=== PATIENT | male | born 1955 | race Caucasian/White ===

== ENCOUNTER → 2018-05-14 | Outpatient (CLI) | payer BC ==
[~2018-05-14] MED LIST: CICLOPIROX OLAM0.771 TP; PRIL40 PO
== END ==
LOC: COL.RAD 08:03
DX: K57.32 Diverticulitis of large intestine without perforation or abscess without bleeding (principal)
CPT/HCPCS: Q9967

== ENCOUNTER 2018-10-24 19:18 | Inpatient (IN) | payer BC ==
[~2018-10-24] VITALS: Ht 170.2 cm; Wt 85.4 kg
[2018-10-24] MEDS ORDERED: GAVISCON ESRF360 ML (19:45)
[2018-10-24 20:32] LABS: BASO # 0.1 (0.0-0.2); BASO % 0.4 % (0.0-2.0); EOS # 0.4 (0.0-0.7); EOS % 3.1 % (0-4.0); GRAN # 8.6 (1.4-6.5); GRAN % 65.6 % (42.2-75.2); HEMATOCRIT 42.3 % (42.0-52.0); HEMOGLOBIN 14.9 g/dl (13.5-18.0); LYMPH % 22.8 % (20.0-51.0); MEAN CELL VOLUME 88 fl (80.0-100.0); MEAN CORPUSCULAR HEMOGLOBIN 31 pg (27.0-31.0); MEAN CORPUSCULAR HGB CONC 35 g/dl (33.0-37.0); MEAN PLATELET VOLUME 10.1 fl (7.4-10.4); MONO % 7.7 % (1.7-9.3); PLATELET COUNT 249 K/mm3 (130-400); RED BLOOD COUNT 4.79 M/mm3 (4.20-5.60); REDCELL DISTRIBUTION WIDTH-CV 13.6 % (11.5-14.5)
[2018-10-24 20:35] LABS: ALBUMIN 4.1 gm/dL (3.5-5.0); BILIRUBIN,TOTAL 0.6 mg/dL (0.0-1.0); C-REACTIVE PROTEIN 3.4 mg/dL (0.0-0.9); CALCIUM 9.8 mg/dL (8.4-10.2); CREATININE, serum 0.86 mg/dL (0.66-1.25); POTASSIUM 3.5 mmol/L (3.4-5.0); TOTAL PROTEIN 7.5 gm/dL (6.4-8.2)
[2018-10-24 22:23] LABS: COLLECTION METHOD CLEAN CATCH
[2018-10-24 22:29] LABS: PH 7 (5-8); SQUAMOUS EPITHELIAL None Seen /hpf; URINE APPEARANCE Clear; URINE BACTERIA None Seen /hpf; URINE BILIRUBIN Negative (NEGATIVE); URINE BLOOD Negative (NEGATIVE); URINE COLOR Straw; URINE GLUCOSE Negative (NEGATIVE); URINE KETONE Trace (NEGATIVE); URINE LEUKOCYTE ESTERASE Negative (NEGATIVE); URINE NITRATE Negative (NEGATIVE); URINE PROTEIN(semi-quant) Negative (NEGATIVE); URINE RBC 0-2 /hpf; URINE UROBILINOGEN Negative (NEGATIVE)
[2018-10-24 23:12] VITALS: BP 154/90; PULSE 79; TEMP 97.5
[2018-10-24 23:13] VITALS: BP 154/90; PULSE 79; TEMP 97.5
[2018-10-25 00:19] LABS: CHOLESTEROL RISK RATIO 5.2
[2018-10-25 00:40] VITALS: BP 126/69; PULSE 71; TEMP 98
[2018-10-25 04:17] VITALS: BP 118/63; PULSE 67; TEMP 87
[2018-10-25 06:40] LABS: BASO % 0.3 % (0.0-2.0); EOS # 0.2 (0.0-0.7); EOS % 1.9 % (0-4.0); GRAN # 7.5 (1.4-6.5); GRAN % 72.9 % (42.2-75.2); HEMATOCRIT 39.5 % (42.0-52.0); HEMOGLOBIN 13.5 g/dl (13.5-18.0); LYMPH # 1.7 (1.2-3.4); LYMPH % 16.1 % (20.0-51.0); MEAN CELL VOLUME 89 fl (80.0-100.0); MEAN CORPUSCULAR HEMOGLOBIN 30 pg (27.0-31.0); MEAN CORPUSCULAR HGB CONC 34 g/dl (33.0-37.0); MEAN PLATELET VOLUME 10.1 fl (7.4-10.4); MONO # 0.9 (0.1-0.6); MONO % 8.5 % (1.7-9.3); PLATELET COUNT 217 K/mm3 (130-400); RED BLOOD COUNT 4.44 M/mm3 (4.20-5.60); REDCELL DISTRIBUTION WIDTH-CV 13.6 % (11.5-14.5)
[2018-10-25 06:55] LABS: ALBUMIN 3.5 gm/dL (3.5-5.0); BILIRUBIN,TOTAL 0.9 mg/dL (0.0-1.0); CALCIUM 9.2 mg/dL (8.4-10.2); CREATININE, serum 0.79 mg/dL (0.66-1.25); POTASSIUM 4.1 mmol/L (3.4-5.0); TOTAL PROTEIN 6.6 gm/dL (6.4-8.2)
[2018-10-25 08:35] VITALS: BP 125/66; PULSE 70; TEMP 97.5
[2018-10-25 11:42] VITALS: BP 121/72; PULSE 59; TEMP 97.4
[2018-10-25 15:47] VITALS: BP 135/77; PULSE 67; TEMP 97.6
[2018-10-25 20:00] VITALS: BP 119/66; PULSE 61; TEMP 98.1
[2018-10-26 00:34] VITALS: BP 110/67; PULSE 64; TEMP 97.8
[2018-10-26 05:05] VITALS: BP 111/64; PULSE 62; TEMP 97.6
[2018-10-26 07:49] VITALS: BP 108/71; PULSE 60; TEMP 97.4
[2018-10-26 11:39] VITALS: BP 121/71; PULSE 50; TEMP 97.6
[2018-10-26] MEDS ORDERED: FLAGYL500 MG PO (12:12)
[2018-10-26] MEDS ORDERED: CLEOCIN HCL300 MG PO (12:20)
[2018-10-26] MEDS ORDERED: PROBIOTIC GOLD1 EACH PO (12:21)
== END 2018-10-26 13:10 | disposition home or self-care (01) | DRG 392 ==
LOC: COL.ER 19:18 → MEDICAL 22:33
PROVIDERS: Nurse Practitioner Family; Physician Assistant
DX: K57.32 Diverticulitis of large intestine without perforation or abscess without bleeding (principal); K21.9 Gastro-esophageal reflux disease without esophagitis
CPT/HCPCS: 99222-AI; 99232-AI; 99239; A4216; J1170; J1650; J2185; J2405; J7030; Q9967

== ENCOUNTER 2018-11-07 14:38 | Inpatient (IN) | payer BC ==
[~2018-11-07] VITALS: Ht 172.7 cm; Wt 81.0 kg
[~2018-11-07 14:38] MED LIST changes: +CLEOCIN HCL300 MG PO; +FLAGYL500 MG PO; +GAVISCON ESRF360 ML; +PROBIOTIC GOLD1 EACH PO
[2018-12-17] VITALS (8 sets, daily range): BP systolic 109–133; BP diastolic 56–86; PULSE 16–98; TEMP 98–98.1
[2018-12-17] MEDS ORDERED: PROBIOTIC FORMU1 CAP PO (11:06)
--- NOTE | 2018-12-17 17:30 | NUR ---
PATIENT ADMITED INTO ROOM 328 POST OP ROBOTIC SIG COLECTOMY. ABDOMINAL LAP SITES X5 ARE CD&I WITH SWIFTSET. ABDOMIN IS DISTENDED, SOFT AND WITH BOWL SOUNDS. NO C/O N/V. IV FLUIDS INFUSING INTO LEFT WRIST IV. MILLER TO DEPENDENT DRAINAGE WITH SMALL AMOUNTS OF CLEAR YELLOW URINE NOTED. HEAD TO TOE ASSESSMENT WNL. ORIENTED TO ROOM. FAMILY AT BEDSIDE. CALL LIGHT IN REACH.
--- NOTE | 2018-12-17 21:00 | NUR ---
Assessment completed. Patient is A&O x 4. VSS, on room air. Tramadol started for pain control. Abdominal lap sites x 5 with edges well approximated. Denies passing any gas. Tolerating clear liquid diet at this time with no c/o nausea. Donohue catheter to DD with greenish/yellow urine draining. BLE scds on. INT to left wrist. is at bedside. Denies any concerns or needs. Bed is in a low position with call light in reach.
--- NOTE | 2018-12-17 21:50 | NUR ---
Ambulated with patient in the hallway with standby assist, gait steady. Reported increase pain with ambulating and movement, prn 1 tablet of Oxycodone given. Denies any concerns or needs, call light within reach.
--- NOTE | 2018-12-18 00:44 | NUR ---
Patient resting in bed reports abdominal pain, scheduled Tylenol ES given. Continues to tolerate diet with no c/o nausea. Denies any concerns or needs at this time, call light remains within reach.
--- NOTE | 2018-12-18 04:29 | NUR ---
Patient c/o of abdomen hurting more and feeling "a little nauseous" rate pain 7/10 prn Oxycodone given and IV Zofran. Reports he wishes he could just belch but is unable to also continues to deny passing any gas. Patient encouraged to ambulate in the hallway again this morning when he doesn't feel nauseous, stated he felt this was a good idea in a little while. Denies any additional concerns or needs, call light within reach.
[2018-12-18 04:52] VITALS: BP 101/60; PULSE 77; TEMP 98.1
--- NOTE | 2018-12-18 05:45 | NUR ---
Patient has rested for short periods of time through the night. VSS, remains on room air. Abdominal lap sites x 5 with edges well approximated. Denies passing gas states he feels like it's close to happening. Reports continued abdominal pain and now right shoulder pain, educated about gas pain. Abdomen is bloated on the right side. Donohue catheter to DD with yellow clear urine draining. Patient was up at this time ambulating the hallway with standby assist, gait remains stead. remains at bedside. Denies any concerns or needs, call light within reach.
[2018-12-18 07:06] LABS: HEMATOCRIT 40.5 % (42.0-52.0); HEMOGLOBIN 13.9 g/dl (13.5-18.0); MEAN CELL VOLUME 89 fl (80.0-100.0); MEAN CORPUSCULAR HEMOGLOBIN 30 pg (27.0-31.0); MEAN CORPUSCULAR HGB CONC 34 g/dl (33.0-37.0); MEAN PLATELET VOLUME 10.6 fl (7.4-10.4); PLATELET COUNT 219 K/mm3 (130-400); RED BLOOD COUNT 4.57 M/mm3 (4.20-5.60); REDCELL DISTRIBUTION WIDTH-CV 13.2 % (11.5-14.5)
--- NOTE | 2018-12-18 07:07 | NUR ---
Report from Marian ELDRIDGE.
[2018-12-18 07:15] LABS: CALCIUM 9.9 mg/dL (8.4-10.2); CREATININE, serum 0.81 mg/dL (0.66-1.25); MAGNESIUM 1.6 mg/dL (1.6-2.3); PHOSPHOROUS 3.7 mg/dL (2.5-4.5); POTASSIUM 4.1 mmol/L (3.4-5.0)
[2018-12-18 07:34] VITALS: BP 100/53; PULSE 72; TEMP 97.6
--- NOTE | 2018-12-18 07:38 | NUR ---
CRITICAL LAB CALLED TO DR. PAZ HE WILL REVIEW AND PLACE ORDERS.
[2018-12-18 07:46] LABS: BAND 7 % (0-10); LYMPHOCYTE 6 % (20.0-51.0); NEUTROPHILS 85 % (42.0-75.2); PLATELET ESTIMATE NORMAL (NORMAL)
--- NOTE | 2018-12-18 09:28 | NUR ---
Initial visit; Patient thanked Sales Effectiveness Manager for looking in on him and offering God's blessings.
--- NOTE | 2018-12-18 10:28 | NUR ---
PT UP INDEPENDENTLY IN ROOM AND HALLS. MILLER CATHETER TO DD WITH CLEAR YELLOW URINE IN BAG. PAIN CONTROLLED WITH PO MEDS.
[2018-12-18 11:42] VITALS: BP 117/68; PULSE 70; TEMP 98
--- NOTE | 2018-12-18 16:10 | NUR ---
ANGELITA and SW student met with the patient to discuss discharge plan. The patient lives alone in [place]. He reports that he does have family in town. The patient does not use any DME and reports independence with ADLs. The patient's PCP is Dr. Belcher and he receives his medications at the [facility] in [place]. The patient reports no difficulties obtaining his medications. The patient does have a DPOA-HC completed and there is a copy in his chart. The patient plans to return home upon discharge. No additional needs at this time.
[2018-12-18 16:33] VITALS: BP 125/59; PULSE 64; TEMP 98.1
--- NOTE | 2018-12-18 18:48 | NUR ---
report to Marian ELDRIDGE.
[2018-12-18 19:54] VITALS: BP 107/64; PULSE 75; TEMP 98.2
--- NOTE | 2018-12-18 21:15 | NUR ---
Assessment completed. Patient is A&O x 4. VSS, on room air. Reports minimal pain to abdomen at this time with movement. Abdominal lap sites x 4 with a small lower transverse incision all with edges well approximated, no drainage noted. Hypoactive bowel sounds. Denies passing any gas. Tolerating diet with no c/o nausea. Voiding with no difficulities. BLE scds on while in bed. Up ambulating in room and hallway independently. Requested Benadryl with HS medications. Denies any concerns or needs, call light is within reach.
[2018-12-19] VITALS (7 sets, daily range): BP systolic 95–129; BP diastolic 53–78; PULSE 70–90; TEMP 97.4–98.6
--- NOTE | 2018-12-19 00:45 | NUR ---
Patient has been resting well after receiving prn Benadryl. Reports minimal pain at this time and refused scheduled Tylenol ES. Denies any concerns or needs.
[2018-12-19 06:05] LABS: HEMATOCRIT 39.6 % (42.0-52.0); HEMOGLOBIN 13.3 g/dl (13.5-18.0); MEAN CELL VOLUME 91 fl (80.0-100.0); MEAN CORPUSCULAR HEMOGLOBIN 30 pg (27.0-31.0); MEAN CORPUSCULAR HGB CONC 34 g/dl (33.0-37.0); MEAN PLATELET VOLUME 10.5 fl (7.4-10.4); PLATELET COUNT 204 K/mm3 (130-400); RED BLOOD COUNT 4.37 M/mm3 (4.20-5.60); REDCELL DISTRIBUTION WIDTH-CV 13.6 % (11.5-14.5)
--- NOTE | 2018-12-19 06:16 | NUR ---
Patient has rested well through the night after receiving Benadryl last night. Abdominal pain controlled with scheduled Tylenol ES. Continues to deny passing any gas. Denies any nausea. Up ambulating the hallway this morning independently. Denies any concerns or needs.
[2018-12-19 06:29] LABS: ALBUMIN 3.6 gm/dL (3.5-5.0); BILIRUBIN,TOTAL 0.9 mg/dL (0.0-1.0); CALCIUM 9.7 mg/dL (8.4-10.2); CREATININE, serum 0.91 mg/dL (0.66-1.25); POTASSIUM 3.9 mmol/L (3.4-5.0); TOTAL PROTEIN 6.7 gm/dL (6.4-8.2)
[2018-12-19 06:34] LABS: EOSINOPHIL 2 % (0-4); LYMPHOCYTE 12 % (20.0-51.0); METAMYELOCYTE 1 % (0-0); NEUTROPHILS 84 % (42.0-75.2); PLATELET ESTIMATE NORMAL (NORMAL)
--- NOTE | 2018-12-19 06:35 | NUR ---
Reported on to CHENTE Sandoval. Assessment completed. Pateint is A&O x4. VSS. INT to L. wrist CDI and patent. Patient has minimal pain to abdomen. Abdominal lap sites x5 are CDI with well approximated edges. Denies passing gas. Tolerating diet well w/ no c/o nausea or vomiting. Ambulating around room and hallways independently. Patient just took a shower and got his linens changed. Pateint denies any needs or concerns at this time. Call light is within reach.
[2018-12-19 06:36] LABS: HYPOCHROMIA 1+
--- NOTE | 2018-12-19 07:04 | NUR ---
REPORT FROM RYLEE ELDRIDGE.
--- NOTE | 2018-12-19 07:06 | NUR ---
ADN STUDENT JACKY WORKING WITH PT THIS SHIFT.
--- NOTE | 2018-12-19 13:18 | NUR ---
Patient is laying in bed watching television. SCDs on and in place. Patient had a small bowel movement earlier today. Patient recieved a PRN Oxycodone 5mg from c/o pain. Patient has no complaints or concerns at this time. Will continue to monitor. Reported off to CHENTE Sandoval.
--- NOTE | 2018-12-19 13:19 | NUR ---
agree with student's assessments this shift. patient had sm bowel movement today. Encouraged pt to continue advancing diet. pt denies needs at this time.
--- NOTE | 2018-12-19 20:30 | NUR ---
Pt. sitting up in bed at this time. Pt. is A&OX3, assessment complete. INT to lt. wrist patent. Pt. reports pain at a 1 on pain scale at this time. Abd. lap sites and abd. transverse incisions CDI with well approximated edges. Pt. denies further needs at this time. Call light within reach.
[2018-12-20 04:52] VITALS: BP 109/72; PULSE 76; TEMP 97.5
[2018-12-20 06:07] LABS: BASO % 0.3 % (0.0-2.0); EOS # 0.4 (0.0-0.7); EOS % 5.8 % (0-4.0); GRAN # 4.7 (1.4-6.5); GRAN % 63.6 % (42.2-75.2); HEMATOCRIT 38.1 % (42.0-52.0); HEMOGLOBIN 12.9 g/dl (13.5-18.0); LYMPH # 1.4 (1.2-3.4); LYMPH % 18.5 % (20.0-51.0); MEAN CELL VOLUME 91 fl (80.0-100.0); MEAN CORPUSCULAR HEMOGLOBIN 31 pg (27.0-31.0); MEAN CORPUSCULAR HGB CONC 34 g/dl (33.0-37.0); MEAN PLATELET VOLUME 10.3 fl (7.4-10.4); MONO # 0.8 (0.1-0.6); MONO % 11.3 % (1.7-9.3); PLATELET COUNT 208 K/mm3 (130-400); REDCELL DISTRIBUTION WIDTH-CV 13.8 % (11.5-14.5)
--- NOTE | 2018-12-20 06:07 | NUR ---
Pt. sitting up in chair at this time. Pt. remains A&OX3. Pt. ambulated the halls this am. Pt. reports mild pain, gave scheduled Tylenol per orders. Pt. denies further needs, call light within reach.
[2018-12-20 06:17] LABS: CALCIUM 9.7 mg/dL (8.4-10.2); CREATININE, serum 0.91 mg/dL (0.66-1.25); POTASSIUM 3.7 mmol/L (3.4-5.0)
--- NOTE | 2018-12-20 06:25 | NUR ---
Reported on to Cristiana ELDRIDGE. Assessment completed. A&O X4, VSS. INT CDI with no redness noted. Abdominal lap sites X5 are CDI and well approximated. Patient denies being able to pass gas. Patient ambulating independently throughout the halls and his room. Patient showered. Bowel sounds are hypoactive in all 4 quadrants. Patient has no c/o pain at this time. Call light is within reach. Will continue to monitor.
[2018-12-20 07:05] VITALS: BP 121/61; PULSE 77; TEMP 97.8
--- NOTE | 2018-12-20 11:38 | NUR ---
Follow-up visit; Patient thanked Card Reader for looking in on him again and for wishing him well. Patient states he is doing a little better.
[2018-12-20 12:00] VITALS: BP 114/91; PULSE 93; TEMP 97.2
[2018-12-20] MEDS ORDERED: ULTRAM 50MG TAB50 MG PO (14:36)
[2018-12-20] MEDS ORDERED: ROXICODONE 55 MG/TAB PO (14:36)
[2018-12-20] MEDS ORDERED: COLACE 100100 MG/CAP PO (14:37)
[2018-12-20] MEDS ORDERED: NEURONTIN100 MG/CAP PO (14:37)
[2018-12-20] MEDS ORDERED: TYLENOL 500MG500 MG PO (14:37)
[2018-12-20 15:48] VITALS: BP 115/67; PULSE 79; TEMP 97.5
--- NOTE | 2018-12-20 20:45 | NUR ---
Pt. sitting up in bed at this time. Pt. is A&OX3, assessment complete. INT to lt. wrist. abd. incsions- edges well approximated. Pt. denies further needs at this time. Call light within reach.
[2018-12-20 20:46] VITALS: BP 133/71; PULSE 85; TEMP 97.9
[2018-12-21 04:00] VITALS: BP 125/83; PULSE 70; TEMP 98
--- NOTE | 2018-12-21 06:36 | NUR ---
Pt. sitting up in chair this am. Pt. is A&OX3. INT to lt. wrist patent. Pt. has been up ambulating the halls this am also. Pt. has had a BM this am. Pt. denies pain or other needs, call light within reach.
[2018-12-21 08:45] VITALS: BP 124/73; PULSE 83; TEMP 97.7
--- NOTE | 2018-12-21 12:10 | NUR ---
Ambulatory independently. Denied pain. Mild nausea and indigestion. Dr. [place] saw patient. Prescriptions and home instructions given. Dismissed to home with family.
== END 2018-12-21 12:10 | disposition home or self-care (01) | DRG 331 ==
LOC: INPTSU 12-17 10:22 → JCC 12-17 10:22 → SURG 12-17 12:30 → JCC 12-17 17:40
PROVIDERS: Urology; ADMIT Surgery
PROC: 0DJD8ZZ Inspection of Lower Intestinal Tract, Via Natural or Artificial Opening Endoscopic (ICD-10-PCS; 2018-12-17)
PROC: 3E0K8KZ Introduction of Other Diagnostic Substance into Genitourinary Tract, Via Natural or Artificial Opening Endoscopic (ICD-10-PCS; 2018-12-17)
PROC: 0DTN4ZZ Resection of Sigmoid Colon, Percutaneous Endoscopic Approach (ICD-10-PCS; principal; 2018-12-17 12:30)
PROC: 8E0W8CZ Robotic Assisted Procedure of Trunk Region, Via Natural or Artificial Opening Endoscopic (ICD-10-PCS; 2018-12-17 12:30)
DX: K57.32 Diverticulitis of large intestine without perforation or abscess without bleeding (principal); E78.5 Hyperlipidemia, unspecified; K21.9 Gastro-esophageal reflux disease without esophagitis; K76.0 Fatty (change of) liver, not elsewhere classified; Z88.0 Allergy status to penicillin
CPT/HCPCS: A4314; A9284; J1650; J2250; J2405; J2704; J2710; J3010; J7120

== ENCOUNTER 2021-02-14 10:38 | Emergency (ER) | payer MEDICARE, OTHER ==
[~2021-02-14] VITALS: Ht 172.7 cm; Wt 98.2 kg
[~2021-02-14 10:38] MED LIST changes: +COLACE 100100 MG/CAP PO; +NEURONTIN100 MG/CAP PO; +PROBIOTIC FORMU1 CAP PO; +ROXICODONE 55 MG/TAB PO; +TYLENOL 500MG500 MG PO; +ULTRAM 50MG TAB50 MG PO
[2021-02-14 10:44] VITALS: TEMP 97.4
[2021-02-14 11:11] LABS: BASO # 0.1 (0.0-0.2); BASO % 0.7 % (0.0-2.0); EOS # 0.5 (0.0-0.7); EOS % 6.2 % (0-4.0); GRAN # 3.6 (1.4-6.5); GRAN % 49.7 % (42.2-75.2); HEMATOCRIT 44.7 % (42.0-52.0); HEMOGLOBIN 15.1 g/dl (13.5-18.0); LYMPH # 2.3 (1.2-3.4); LYMPH % 31.3 % (20.0-51.0); MEAN CELL VOLUME 89 fl (80.0-100.0); MEAN CORPUSCULAR HEMOGLOBIN 30 pg (27.0-31.0); MEAN CORPUSCULAR HGB CONC 34 g/dl (33.0-37.0); MEAN PLATELET VOLUME 9.6 fl (7.4-10.4); MONO # 0.8 (0.1-0.6); MONO % 11.5 % (1.7-9.3); PLATELET COUNT 227 K/mm3 (130-400); RED BLOOD COUNT 5.04 M/mm3 (4.20-5.60); REDCELL DISTRIBUTION WIDTH-CV 13.7 % (11.5-14.5)
[2021-02-14 11:19] LABS: ALANINE AMINOTRANSFERASE 43 U/L (4-49); ALBUMIN 4.2 gm/dL (3.5-5.0); ALKALINE PHOSPHATASE 90 U/L (50-136); ANION GAP 7 mmol/L (7-16); AST,SGOT 36 U/L (15-37); BILIRUBIN,TOTAL 0.4 mg/dL (0.0-1.0); BLOOD UREA NITROGEN 11 mg/dL (9-20); CALCIUM 10.1 mg/dL (8.4-10.2); CARBON DIOXIDE 27 mmol/L (22-30); CHLORIDE 105 mmol/L (98-107); CREATININE, serum 0.87 (0.66-1.25); GLUCOSE 94 mg/dL (74-106); POTASSIUM 4.3 mmol/L (3.4-5.0); SODIUM 139 mmol/L (137-145); TOTAL PROTEIN 8.1 gm/dL (6.4-8.2)
[2021-02-14 12:01] LABS: TROPONIN-I < 0.012 ng/mL (0.000-0.035)
[2021-02-14 15:34] VITALS: BP 140/82; PULSE 73
== END 2021-02-14 15:35 | disposition home or self-care (01) ==
LOC: COL.ER 10:38
PROVIDERS: Emergency Medicine
DX: R07.89 Other chest pain (principal); K21.9 Gastro-esophageal reflux disease without esophagitis; Z88.0 Allergy status to penicillin; Z88.8 Allergy status to other drugs, medicaments and biological substances; Z88.2 Allergy status to sulfonamides; Z88.1 Allergy status to other antibiotic agents

== ENCOUNTER 2021-05-18 11:01 | Emergency (ER) | payer MEDICARE, OTHER ==
[~2021-05-18] VITALS: Ht 172.7 cm; Wt 97.7 kg
[2021-05-18 11:13] VITALS: TEMP 97.8
[2021-05-18 12:28] VITALS: BP 150/80; PULSE 70
== END 2021-05-18 12:25 | disposition home or self-care (01) ==
LOC: COL.ER 11:01
DX: S60.212A Contusion of left wrist, initial encounter (principal); S60.222A Contusion of left hand, initial encounter; S50.811A Abrasion of right forearm, initial encounter; W19.XXXA Unspecified fall, initial encounter; W22.8XXA Striking against or struck by other objects, initial encounter

== ENCOUNTER 2022-08-29 16:10 | Emergency (ER) | payer MEDICARE, OTHER ==
[~2022-08-29] VITALS: Ht 172.7 cm; Wt 102.3 kg
[2022-08-29 16:32] VITALS: TEMP 98.5
[2022-08-29 18:01] LABS: BASO # 0.1 K/mm3 (0.0-0.2); BASO % 0.7 % (0.0-2.0); EOS # 0.3 K/mm3 (0.0-0.7); EOS % 3.9 % (0.0-4.0); GRAN # 4.9 K/mm3 (1.4-6.5); GRAN % 56.1 % (42.2-75.2); HEMATOCRIT 43.5 % (42.0-52.0); HEMOGLOBIN 14.6 g/dl (13.5-18.0); LYMPH # 2.7 K/mm3 (1.2-3.4); LYMPH % 31.4 % (20.0-51.0); MEAN CELL VOLUME 91 fl (80.0-100.0); MEAN CORPUSCULAR HEMOGLOBIN 31 pg (27-31); MEAN CORPUSCULAR HGB CONC 34 g/dl (33.0-37.0); MEAN PLATELET VOLUME 10.7 fl (7.4-10.4); MONO # 0.7 K/mm3 (0.1-0.6); MONO % 7.7 % (1.7-9.3); PLATELET COUNT 250 K/mm3 (130-400); RED BLOOD COUNT 4.76 M/mm3 (4.20-5.60); REDCELL DISTRIBUTION WIDTH-CV 13.2 % (11.5-14.5)
[2022-08-29 18:07] LABS: ANION GAP 8 mmol/L (7-16); BLOOD UREA NITROGEN 13 mg/dL (8-26); CALCIUM 9.9 mg/dL (8.4-10.2); CARBON DIOXIDE 23 mmol/L (23-31); CHLORIDE 105 mmol/L (98-107); CREATININE, serum 1.27 mg/dL (0.72-1.25); GLUCOSE 147 mg/dL (70-99); POTASSIUM 3.9 mmol/L (3.5-4.5); SODIUM 136 mmol/L (136-145)
[2022-08-29 18:25] LABS: TROPONIN-I < 0.010 ng/mL (0.00-0.033)
[2022-08-29 20:21] VITALS: BP 135/82; PULSE 50
== END 2022-08-29 20:30 | disposition home or self-care (01) ==
LOC: COL.ER 16:10
PROVIDERS: Emergency Medicine
DX: M54.12 Radiculopathy, cervical region (principal); I10 Essential (primary) hypertension; I48.91 Unspecified atrial fibrillation; Z79.01 Long term (current) use of anticoagulants
CPT/HCPCS: J2765; Q9967

== ENCOUNTER 2023-08-16 12:09 | Emergency (ER) | payer MEDICARE, OTHER ==
[~2023-08-16] VITALS: Ht 172.7 cm; Wt 105.0 kg
[2023-08-16] MEDS ORDERED: FLAGYL500 MG PO (12:17)
[2023-08-16] MEDS ORDERED: LOPRESSOR 550 MG/TAB PO (12:17)
[2023-08-16] MEDS ORDERED: XARELTO20 MG PO (12:17)
[2023-08-16] MEDS ORDERED: CRESTOR 10MG10 MG PO (12:17)
[2023-08-16 12:18] VITALS: TEMP 98.7
[2023-08-16 13:12] LABS: COLLECTION METHOD CLEAN CATCH
[2023-08-16 13:25] LABS: BASO # 0.1 K/mm3 (0.0-0.2); BASO % 0.7 % (0.0-2.0); EOS # 0.3 K/mm3 (0.0-0.7); GRAN # 5.1 K/mm3 (1.4-6.5); GRAN % 54.4 % (42.2-75.2); HEMATOCRIT 43.9 % (42.0-52.0); HEMOGLOBIN 15.2 g/dl (13.5-18.0); LYMPH # 3.1 K/mm3 (1.2-3.4); LYMPH % 33.1 % (20.0-51.0); MEAN CELL VOLUME 90 fl (80.0-100.0); MEAN CORPUSCULAR HEMOGLOBIN 31 pg (27-31); MEAN CORPUSCULAR HGB CONC 35 g/dl (33.0-37.0); MEAN PLATELET VOLUME 10.5 fl (7.4-10.4); MONO # 0.8 K/mm3 (0.1-0.6); MONO % 8.4 % (1.7-9.3); PLATELET COUNT 229 K/mm3 (130-400); REDCELL DISTRIBUTION WIDTH-CV 13.5 % (11.5-14.5)
[2023-08-16 13:36] LABS: ALBUMIN 4.1 gm/dL (3.4-4.8); BILIRUBIN,TOTAL 0.7 mg/dL (0.2-1.2); CALCIUM 10.6 mg/dL (8.4-10.2); CREATININE, serum 0.88 mg/dL (0.72-1.25); POTASSIUM 3.9 mmol/L (3.5-4.5); TOTAL PROTEIN 7.7 gm/dL (6.2-8.1)
[2023-08-16 14:04] LABS: URINE APPEARANCE Clear (CLEAR/HAZY); URINE COLOR Yellow (YELLOW)
[2023-08-16 14:05] LABS: SQUAMOUS EPITHELIAL 0-2 /hpf (0-10); URINE BLOOD Negative (NEGATIVE); URINE GLUCOSE Negative (NEGATIVE); URINE KETONE TRACE (NEGATIVE); URINE NITRATE Negative (NEGATIVE); URINE PROTEIN(semi-quant) Negative (NEGATIVE); URINE RBC None Seen /hpf (0-2); URINE UROBILINOGEN 0.2 E.U/dL (0.2-1.0)
[2023-08-16 15:47] VITALS: BP 138/73; PULSE 62
== END 2023-08-16 15:45 | disposition home or self-care (01) ==
LOC: COL.ER 12:09
PROVIDERS: Emergency Medicine
DX: R10.31 Right lower quadrant pain (principal); R11.0 Nausea
CPT/HCPCS: J2405; J7030; Q9967